=== PATIENT | female | born 1960 | race Caucasian/White ===

== ENCOUNTER → 2016-07-18 | Outpatient (REF) | LOC: ZLAB.WCH 10:31 | DX: Z01.89 Encounter for other specified special examinations (principal) ==

== ENCOUNTER → 2016-10-15 | Outpatient (REF) | LOC: ZLAB.WCH 18:08 | DX: Z01.89 Encounter for other specified special examinations (principal) ==

== ENCOUNTER → 2016-12-12 | Outpatient (REF) | LOC: WSOH 09:39 | DX: Z02.89 Encounter for other administrative examinations (principal) ==

== ENCOUNTER → 2017-04-25 | Outpatient (REF) | LOC: ZLAB.WCH 17:43 | DX: Z01.89 Encounter for other specified special examinations (principal) ==

== ENCOUNTER → 2017-04-28 | Outpatient (REF) | LOC: ZLAB.WCH 17:12 | DX: Z01.89 Encounter for other specified special examinations (principal) ==

== ENCOUNTER → 2017-12-09 | Outpatient (REF) | LOC: ZLAB.WCH 17:54 | DX: Z01.89 Encounter for other specified special examinations (principal) ==